=== PATIENT | female | born 1975 | race Caucasian/White ===

== ENCOUNTER 2017-02-11 14:28 | Emergency (ER) | payer BC ==
[~2017-02-11 14:28] MED LIST: BENTYL20 MG PO; CALCIUM + VITA1 EAC4 PO; CALCIUM PO; CALCIUM600 M1 PO; CINNAMON500 M1 PO; CINNAMON500 MG PO; ENDOCET 5-3251 EACH PO; ESTRADIOL TD; ESTRADIOL0.5 M1 PO; FISH OIL 1,0001 CA1 PO; FISH OIL 1,4001 EACH PO; FISH OIL EC 1,1 EAC1 PO; LEXAPRO10 M2 PO; LIPITOR20 M1 PO; LO/OVRAL-281 TAB; MOBIC15 M2 PO; MULTI-VITAMIN1 EAC1 PO; MULTI-VITAMIN1 EAC3 PO; NAPROXEN500 M1 PO; NORCO 5/325 TAB1 TAB PO; NORCO 5/3251 TA2 PO; OXYCODONE/APAP PO; PERCOCET 5-3251 EACH PO; TOPAMAX50 M1 PO; TORADOL10 MG PO; TYLENOL #31 TA1 PO; VICODIN 5/500 T1 TAB PO; VITAM PO; VITAMIN D5000 UNI2 PO; VITAMIN D5000 UNIT PO; VIVELLE B; VIVELLE B TD; VIVELLE-DOT1 EAC1 TD; ZOFRAN ODT4 MG/UDTAB PO; [UNRECOGNIZED DRUG - OTHER] PO; [UNRECOGNIZED DRUG - OTHER] TD
[2017-02-11 15:46] LABS: BASO % 0.3 % (0-2); EOS % 1.4 % (0-7); EOSINOPHIL ABSOLUTE COUNT 0.1 tho/cmm (0.0-0.7); HCT-HEMATOCRIT 41.2 % (34.0-49.0); HGB-HEMOGLOBIN 13.8 gm/dl (12.0-15.5); LYMPH % 22.5 % (20-45); LYMPH ABSOLUTE COUNT 1.7 tho/cmm (0.8-4.5); MCH (MEAN CORPUSCULAR HGB) 30.1 pg (28.0-32.0); MCHC MEAN CORPUSCULAR HGB CONC 33.5 % (32.0-36.0); MCV (MEAN CELL VOLUME) 89.8 fl (82.0-96.0); MONO % 7.9 % (0-12); MONOCYTE ABSOLUTE COUNT 0.6 tho/cmm (0.0-1.2); NEUTROPHIL ABSOLUTE COUNT 5.2 tho/cmm (1.6-8.0); NEUTROPHIL-AUTOMATED 5.2 tho/cmm (1.6-8.0); NEUTROPHILS % 67.9 % (40-80); PLATELET COUNT 149 tho/cmm (150-450); RED BLOOD COUNT 4.59 mil/cmm (4.00-5.20); RED CELL DISTRIBUTION WIDTH 12.2 % (12.4-16.4); WHITE BLOOD COUNT 7.6 tho/cmm (4.0-10.0)
[2017-02-11 16:07] LABS: URINE BILIRUBIN NEGATIVE (NEG); URINE BLOOD NEGATIVE (NEG); URINE GLUCOSE (UA) NEGATIVE (NEG); URINE KETONE NEGATIVE (NEG); URINE LEUKOCYTE ESTERASE NEGATIVE (NEG); URINE NITRITE NEGATIVE (NEG); URINE PROTEIN NEGATIVE (NEG)
[2017-02-11 16:08] LABS: URINE APPEARANCE CLEAR; URINE COLOR YELLOW
[2017-02-11] MEDS ORDERED: ZOFRAN ODT4 MG PO (16:34)
[2017-02-11 17:09] LABS: ANION GAP 10 mmol/L (0-20); BLOOD UREA NITROGEN 6 mg/dl (6-24); CALCIUM 8.5 mg/dl (8.5-10.5); CARBON DIOXIDE-VENOUS 28 mmol/L (22-32); CHLORIDE 107 mmol/l (96-110); CREATININE 0.75 mg/dl (0.50-1.10); GLUCOSE 90 mg/dL (70-110); POTASSIUM 3.7 mmol/L (3.7-5.1); SODIUM 141 mmol/L (135-145); eGFR VALUE FOR BLACK >90 mL/Min
== END 2017-02-11 17:39 ==
LOC: EDMED 14:28
PROVIDERS: Emergency Medicine
DX: F07.81 Postconcussional syndrome (principal); S09.90XA Unspecified injury of head, initial encounter; S00.81XA Abrasion of other part of head, initial encounter; M62.81 Muscle weakness (generalized); Z79.82 Long term (current) use of aspirin; W01.0XXA Fall on same level from slipping, tripping and stumbling without subsequent striking against object, initial encounter; Y92.481 Parking lot as the place of occurrence of the external cause
CPT/HCPCS: J1170; J2405